=== PATIENT | female | born 1975 | race Two or more races ===

== ENCOUNTER 2017-11-03 18:20 | Inpatient (IN) | payer MEDICAID ==
--- NOTE | 2017-11-03 18:32 | ED Physician Chart ---
ED Chief Complaint/HPI - Patient Information Date Seen:: 11/03/17 Time Seen:: 18:15 Chief Complaint:: Chest Pain History of Present Illness:: onset x one year of intermittent, exertional, pressure midsternal chest pain with dyspnea and palpitations; worse x 3 days; pt denies trauma, H/As, S/T, neck pain, Abd. Pain, A/N/V/D/C, fever, chills, or urinary s/s Allergies:: Allergies Allergy/AdvReac Type Severity Reaction Status Date / Time No Known Allergies Allergy Verified 11/03/17 18:24 Historian:: Patient Review:: Nurse's Note Reviewed <Santo Santa - Last Filed: 11/03/17 18:37> - Patient Information Allergies:: Allergies Allergy/AdvReac Type Severity Reaction Status Date / Time No Known Allergies Allergy Verified 11/03/17 18:24 Vitals:: Vital Signs - 8 hr 11/03/17 11/03/17 11/03/17 18:25 18:47 19:35 Temp 98.4 F HR 78 71 90 RR 20 16 BP 160/97 154/85 156/93 O2 Sat % 98 97 11/03/17 19:50 Temp 98.0 F HR 77 RR 18 BP 156/93 O2 Sat % 97 <Reina Duarte - Last Filed: 11/03/17 22:07> ED Review of Systems - Review of Systems General/Constitutional: No fever, No chills, No weight loss, No weakness, No diaphoresis, No edema, No loss of appetite Skin: No skin lesions, No rash, No bruising Head: No headache, No light-headedness Eyes: No loss of vision, No pain, No diplopia ENT: No earache, No nasal drainage, No sore throat, No tinnitus Neck: No neck pain, No swelling, No thyromegaly, No stiffness, No mass noted Cardio Vascular: Chest pain, Palpitations, No PND, No orthopnea, No edema Pulmonary: SOB, No cough, No sputum, No wheezing GI: No nausea, No vomiting, No diarrhea, No pain, No melena, No hematochezia, No constipation, No hematemesis G/U: No dysuria, No frequency, No hematuria, No nacturia [employer]: No vaginal discharge, No abnormal vaginal bleed, No contraction Musculoskeletal: No bone or joint pain, No back pain, No muscle pain Endocrine: No polyuria, No polydipsia Psychiatric: No prior psych history, No depression, No anxiety, No suicidal ideation, No homicidal ideation, No auditory hallucination, No visual hallucination Hematopoietic: No bruising, No lymphadenopathy Allergic/Immuno: No urticaria, No angioedema Neurological: No syncope, No focal symptoms, No weakness, No paresthesia, No headache, No seizure, No dizziness, No confusion, No vertigo <Santo Santa - Last Filed: 11/03/17 18:37> ED Past Medical History - Past Medical History Obtainable: Yes Past Medical History: HTN, DM, CAD, Dyslipidemia Family History: Diabetes Melitus, HTN Social History: Non Smoker, No Alcohol, No Drug Use, Single Surgical History: None Psychiatricy History: None Medication: Reviewed <Santo Santa Last Filed: 11/03/17 18:37> Family Medical History - Family Member Mother History Unknown: Yes <Santo Santa Marv Filed: 11/03/17 18:37> ED Physical Exam - Physical Examination General/Constitutional: Awake, Well-developed, well-nourished, Alert, No distress, GCS 15, Non-toxic appearing, Ambulatory Head: Atraumatic Eyes: Lids, conjuctiva normal, PERRL, EOMI Skin: Nl inspection, No rash, No skin lesions, No ecchymosis, Well hydrated, No lymphadenopathy ENMT: External ears, nose nl, TM canals nl, Nasal exam nl, Lips, teeth, gums nl , Oropharynx nl, Tonsils nl Neck: Nontender, Full ROM w/o pain, No JVD, No nuchal rigidity, No bruit, No mass, No stridor Respiratory: Nl effort/Exclusion, Clear to Auscultation, No Wheeze/Rhonchi/Rales Cardio Vascular: RRR, No murmur, gallop, rubs, NL S1 S2, Carotid/Femoral/Distal pulses equal bilaterally GI: No tenderness/rebounding/guarding, No organomegaly, No hernia, Normal BS's, Nondistended, No mass/bruits, No McBurney tenderness : No CVA tenderness Extremities: No tenderness or effusion, Full ROM, normal strength in all extremities, No edema, Normal digits & nails Neuro/Psych: Alert/oriented, DTR's symmetric, Normal sensory exam, Normal motor strength, Judgement/insight normal, Mood normal, Normal gait, No focal deficits Misc: Normal back, No paraspinal tenderness <Santo Santa - Last Filed: 11/03/17 18:37> ED Labs/Radiology/EKG Results - EKG Interpretations EKG Time:: 18:22 Rate & Rhythm: 75; NSR Comments:: old ASMI; non-specific st-t changes <Santo Santa - Last Filed: 11/03/17 18:37> - Lab Results Results: Laboratory Tests 11/03/17 11/03/17 11/03/17 18:25 18:25 18:25 WBC 7.0 RBC 4.80 Hgb 12.6 Hct 38.2 L MCV 79.5 L MCH 26.2 L MCHC Differential 33.0 RDW 12.3 Plt Count 239 MPV 8.4 Neutrophils % 51.5 Lymphocytes % 39.8 Monocytes % 5.2 Eosinophils % 2.2 Basophils % 1.3 PT 9.4 L INR 0.90 D-Dimer 113 Sodium 136 Potassium 3.6 Chloride 104 Carbon Dioxide 24.9 Anion Gap 10.7 BUN 11 Creatinine 0.6 Est GFR ( Amer) > 60.0 Est GFR (Non-Af Amer) > 60.0 BUN/Creatinine Ratio 18.3 Glucose 115 H Calcium 8.9 Total Bilirubin 0.3 AST 19 ALT 22 Alkaline Phosphatase 74 Creatine Kinase 106 Troponin I B-Natriuretic Peptide Total Protein 7.3 Albumin 4.1 Globulin 3.2 Albumin/Globulin Ratio 1.3 Triglycerides 135 Cholesterol 191 LDL Cholesterol Direct 126 HDL Cholesterol 48 Serum , Qual Urine Source Urine Color Urine Clarity Urine pH Ur Specific [place] Urine Protein Urine Glucose (UA) Urine Ketones Urine Blood Urine Nitrate Urine Bilirubin Urine Urobilinogen Ur Leukocyte Esterase Urine RBC Urine WBC Ur Epithelial Cells Urine Bacteria 11/03/17 11/03/17 11/03/17 18:25 18:25 18:25 WBC RBC Hgb Hct MCV MCH MCHC Differential RDW Plt Count MPV Neutrophils % Lymphocytes % Monocytes % Eosinophils % Basophils % PT INR D-Dimer Sodium Potassium Chloride Carbon Dioxide Anion Gap BUN Creatinine Est GFR ( Amer) Est GFR (Non-Af Amer) BUN/Creatinine Ratio Glucose Calcium Total Bilirubin AST ALT Alkaline Phosphatase Creatine Kinase Troponin I < 0.01 L B-Natriuretic Peptide 13.6 Total Protein Albumin Globulin Albumin/Globulin Ratio Triglycerides Cholesterol LDL Cholesterol Direct HDL Cholesterol Serum , Qual NEGATIVE Urine Source Urine Color Urine Clarity Urine pH Ur Specific [place] Urine Protein Urine Glucose (UA) Urine Ketones Urine Blood Urine Nitrate Urine Bilirubin Urine Urobilinogen Ur Leukocyte Esterase Urine RBC Urine WBC Ur Epithelial Cells Urine Bacteria 11/03/17 20:00 WBC RBC Hgb Hct MCV MCH MCHC Differential RDW Plt Count MPV Neutrophils % Lymphocytes % Monocytes % Eosinophils % Basophils % PT INR D-Dimer Sodium Potassium Chloride Carbon Dioxide Anion Gap BUN Creatinine Est GFR ( Amer) Est GFR (Non-Af Amer) BUN/Creatinine Ratio Glucose Calcium Total Bilirubin AST ALT Alkaline Phosphatase Creatine Kinase Troponin I B-Natriuretic Peptide Total Protein Albumin Globulin Albumin/Globulin Ratio Triglycerides Cholesterol LDL Cholesterol Direct HDL Cholesterol Serum , Qual Urine Source [place] Urine Color YELLOW Urine Clarity CLEAR Urine pH 6.5 Ur Specific [place] 1.015 Urine Protein NEGATIVE Urine Glucose (UA) NEGATIVE Urine Ketones NEGATIVE Urine Blood NEGATIVE Urine Nitrate POSITIVE H Urine Bilirubin NEGATIVE Urine Urobilinogen 0.2 Ur Leukocyte Esterase NEGATIVE Urine RBC 0-2 Urine WBC 0-2 Ur Epithelial Cells FEW Urine Bacteria FEW <Reina Duarte - Last Filed: 11/03/17 22:07> ED Septic Shock - . Is Septic Shock (SBP<90, OR Lactate>4 mmol\L) present?: No <Santo Santa - Last Filed: 11/03/17 18:37> - <6hrs of presentation: Vital Signs: Vital Signs - 8 hr 11/03/17 11/03/17 11/03/17 18:25 18:47 19:35 Temp 98.4 F HR 78 71 90 RR 20 16 BP 160/97 154/85 156/93 O2 Sat % 98 97 11/03/17 19:50 Temp 98.0 F HR 77 RR 18 BP 156/93 O2 Sat % 97 <Reina Duarte - Last Filed: 11/03/17 22:07> ED Reassessment (Disposition) - Diagnosis Diagnosis:: Chest Pain; Dyspnea; Angina Pectoris <Santo Santa - Last Filed: 11/03/17 18:37> - Reassessment Reassessment Condition:: Improved - Patient Disposition Discharge/Transfer:: Acute Care w/in this hosp Accepting Physician:: lissa Time Called:: 2049 <Reina Duarte - Last Filed: 11/03/17 22:07>
[2017-11-03] MEDS ORDERED: Morphine Sulfate 4 mg/mL 1mL Syr IV STA (18:36)
[2017-11-03 18:41] LABS: % BASOPHILS 1.3 % (0.0-2.0); % EOSINOPHILS 2.2 % (0.0-5.0); % LYMPHOCYTES 39.8 % (20.0-50.0); % MONOCYTES 5.2 % (2.0-10.0); % NEUTROPHILS 51.5 % (40.0-80.0); BASOPHILE ABSOLUTE 0.1 Th/cumm (0-0.2); EOSINOPHILE ABSOLUTE 0.2 Th/cmm (0.1-0.4); HEMATOCRIT 38.2 % (41.0-60); HEMOGLOBIN 12.6 gm/dL (12-16); LYMPHOCYTE ABSOLUTE 2.8 Th/cmm (1.5-3.0); MEAN CELL VOLUME 79.5 fl (81-100); MEAN CORPUSCULAR HEMOGLOBIN 26.2 pg (27.0-31.0); MEAN PLATELET VOLUME 8.4 fl; MONOCYTE ABSOLUTE 0.4 Th/cmm (0.3-1.0); NEUTROPHILE ABSOLUTE 3.5 Th/cmm (1.8-8.0); PLATELET COUNT 239 Th/cmm (150-400); RED CELL DISTRIBUTION WIDTH 12.3 % (11.5-20.0)
[2017-11-03 18:51] LABS: INR 0.9 (0.5-1.4); PROTHROMBIN TIME (TEST) 9.4 SECONDS (9.5-11.5)
[2017-11-03 18:58] LABS: ALB/GLOB RATIO 1.3 (1.0-1.8); ALBUMIN 4.1 gm/dL (3.7-5.3); ALKALINE PHOSPHATASE 74 U/L (34-104); ANION GAP 10.7 (7.0-16.0); BILIRUBIN,TOTAL 0.3 mg/dL (0.3-1.0); BUN - UREA NITROGEN 11 mg/dL (7-25); CALCIUM SERUM 8.9 mg/dL (8.6-10.3); CARBON DIOXIDE 24.9 mEq/L (21.0-31.0); CHLORIDE 104 mEq/L (98-107); CHOLESTEROL 191 mg/dL (<200); CREATININE - SERUM 0.6 mg/dL (0.6-1.2); CREATININE KINASE 106 U/L (30-223); GFR AFRICAN-AMERICAN > 60.0 ml/min (>90); GFR NON AFRICAN-AMERICAN > 60.0 ml/min; GLUCOSE 115 mg/dL (70-105); HDL -HIGH DENSITY LIPOPROTEIN 48 mg/dL (23-92); POTASSIUM SERUM 3.6 mEq/L (3.5-5.1); SGOT 19 U/L (13-39); SGPT/ALT 22 U/L (7-52); SODIUM SERUM 136 mEq/L (136-145); TOTAL PROTEIN,SERUM 7.3 gm/dL (6.0-8.3); TRIGLYCERIDES 135 mg/dL (<150)
[2017-11-03 19:27] LABS: DDIMER QUANT 113 ng/mL (100-400)
[2017-11-03] MEDS ORDERED: NITROGLYCERIN OINT 2% 1 INCH PACKET TP STA (19:33)
[2017-11-03] MEDS ORDERED: NITROGLYCERIN OINT 2% 1 INCH PACKET TP ONE (19:34)
[2017-11-03 20:09] LABS: URINE MICROSCOPIC INDICATED? YES; URINE SOURCE MIDSTREAM
[2017-11-03 20:11] LABS: URINE BILIRUBIN NEGATIVE (NEGATIVE); URINE BLOOD NEGATIVE (NEGATIVE); URINE GLUCOSE (UA) NEGATIVE (NEGATIVE); URINE KETONE NEGATIVE (NEGATIVE); URINE LEUKOCYTE ESTERASE NEGATIVE (NEGATIVE); URINE NITRATE POSITIVE (NEGATIVE); URINE PH 6.5 (4.6 - 8.0); URINE PROTEIN NEGATIVE (NEGATIVE); URINE UROBILINOGEN 0.2 E.U./dL (0.2 - 1.0)
[2017-11-03 20:31] LABS: URINE CLARITY CLEAR (CLEAR); URINE COLOR YELLOW
[2017-11-03] MEDS ORDERED: Pantoprazole 40 mg EC Tab PO STA (21:10)
[2017-11-03] MEDS ORDERED: Pantoprazole 40 mg EC Tab PO ONE (21:11)
[2017-11-03 21:18] LABS: URINE BACTERIA FEW /hpf (NONE SEEN); URINE EPITHELIAL CELLS FEW /lpf (FEW); URINE RBC 0-2 /hpf (0-5); URINE WBC 0-2 /hpf (0-5)
[2017-11-03] MEDS ORDERED: Acetaminophen 500 MG TAB PO PRN (23:56)
[2017-11-04] MEDS ORDERED: NITROGLYCERIN OINT 2% 1 INCH PACKET TP SCH
[2017-11-04 04:21] VITALS: BP 143/83
--- NOTE | 2017-11-04 08:11 | Diagnostic Imaging Report ---
Portable chest x-ray Time: 1936 History: Shortness of breath Allowing for portable technique the heart size is normal. No focal pulmonary parenchymal processes. No hilar or mediastinal abnormalities. Impression: No acute abnormalities.
[2017-11-04] MEDS ORDERED: Pantoprazole 40 mg EC Tab PO SCH (09:00)
--- NOTE | 2017-11-04 09:35 | History & Physical ---
ADMIT DATE: 11/04/2017 PATIENT'S IDENTIFICATION: A 42-year-old female. 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 The patient was sent to Emergency Room because of elevated blood pressure and the patient had some chest pain. The patient was seen by Emergency Room MD and subsequently admitted to the hospital in the view of abnormal EKG and elevated blood pressure. According to the Emergency Room MD and the RN, her blood pressure got better and her pain was resolved after nitroglycerin pill. PAST MEDICAL HISTORY: Hypertension and questionable diabetes. MEDICATIONS AT HOME: Unknown. ALLERGIES: None. SOCIAL HISTORY: The patient works in the [employer]. No history of smoking cigarette, alcohol, or drug use. FAMILY MEDICAL HISTORY: Remarkable for diabetes and hypertension. REVIEW OF SYSTEMS: The patient is currently chest pain free. Denies any headache, blurred vision, double vision, dysphagia, odynophagia, runny nose, stuffy nose, fever, chills, cough, abdominal pain, nausea, vomiting, diarrhea, dysuria, hematuria, hematochezia, melena. No history of any seizure or syncopal episode. PHYSICAL EXAMINATION: GENERAL: The patient is alert, awake, oriented, lying in the bed without any acute distress. VITAL SIGNS: Temperature 98.6, pulse 65, respiratory 18, blood pressure 145/80. HEENT: Normocephalic, atraumatic. Extraocular muscles are intact. Tongue was pink and coated. Poor dentition noted. No oral lesion, no ulcer. No sinus tenderness. External recurrent movements are well visualized. NECK: Supple, no JVD, no hepatojugular reflex. No lymphadenopathy, thyromegaly, or carotid bruit. HEART: Both heart sounds are regular. No S3, no S4, no murmur. CHEST AND LUNGS: Equal in expansion, no wheezing, no crackles. ABDOMEN: Soft. No guarding, no rigidity. Liver and spleen palpable. No palpable mass. EXTREMITIES: No edema, no cyanosis, no clubbing. Pulses are +2, no calf tenderness noted. NEUROLOGIC: Alert, awake, following commands, nonfocal. AVAILABLE DIAGNOSTIC DATA: Performed in the Emergency Room has been reviewed. CLINICAL IMPRESSION: 1. Hypertension by history. 2. Atypical chest pain. 3. Obesity. 4. Possible gastroesophageal reflux disease. PLAN: 1. Admit this patient to telemetry unit, provide oxygen. 2. Aspirin. 3. Protonix. 4. Beta-meagan. 5. Cardiology consult. 6. Obtain three sets of cardiac enzymes. 7. General nursing care. 8. Cardiac monitoring. 9. Follow Cardiology recommendation. 10. Since the patient's symptoms has resolved, the patient can be discharged home with p.o. 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 [facility]# [id number]
--- NOTE | 2017-11-05 08:11 | Consultation ---
DATE OF CONSULTATION: 11/04/[address] Riddle. HISTORY OF PRESENT ILLNESS: This is a 42-year-old obese female patient who has menorrhagia. The patient apparently recently found to have high blood pressure. Following this, the patient came to the Emergency Room and the patient is admitted. The patient does not complain of chest pain. No history of PND or orthopnea at the present time. PAST MEDICAL HISTORY: Hypertension, obesity, questionable diabetes, and anxiety. FAMILY HISTORY: Unremarkable. SOCIAL HISTORY: No history of smoking or alcohol abuse. ALLERGIES: None. PHYSICAL EXAMINATION: VITAL SIGNS: Blood pressure 150/80, pulse 70, and respirations 20. HEAD: Normocephalic. No lumps or bumps. EYES: Pupils equal, reactive to light. Fundi show AV nicking, sclerae white, conjunctivae pink. NECK: Carotid 2+. Normal upstroke. JVD flat. Thyroid not palpable. Lymph nodes not palpable. CHEST: Shows increased AP diameter. No kyphosis, scoliosis. LUNGS: Bilateral bronchovesicular breath sounds. HEART: PMI fifth intercostal space with lateral to midclavicular line. S1, S2. No S3, S4, soft systolic murmur. ABDOMEN: Soft. Liver, spleen not palpable. No organomegaly. Bowel sounds active. NEUROLOGIC: Unremarkable. EXTREMITIES: Peripheral pulses 2+. No pedal edema. CLINICAL IMPRESSION: Atypical chest pain, hypertension, obesity, gastroesophageal reflux disease, and possible diabetes. PLAN: We will get EKG, troponin level, echocardiogram. [facility]# [id number]
== END 2017-11-04 17:05 | disposition home or self-care (01) | DRG 198 ==
LOC: ER 18:20 → TELE 20:50
PROVIDERS: ADMIT Internal Medicine; ATTEND Internal Medicine
DX: I25.119 Atherosclerotic heart disease of native coronary artery with unspecified angina pectoris (principal); E11.9 Type 2 diabetes mellitus without complications; R07.89 Other chest pain; F41.9 Anxiety disorder, unspecified; N92.0 Excessive and frequent menstruation with regular cycle; E78.5 Hyperlipidemia, unspecified; E66.9 Obesity, unspecified; I10 Essential (primary) hypertension; K21.9 Gastro-esophageal reflux disease without esophagitis; Z68.31 Body mass index [BMI] 31.0-31.9, adult; Z83.3 Family history of diabetes mellitus; Z82.49 Family history of ischemic heart disease and other diseases of the circulatory system
CPT/HCPCS: 36415-UA; 71045-TC; 80053-TC; 80061-TC; 81001-TC; 82550-TC; 83880-TC; 84484-TC; 84703-TC; 85025-TC; 85379-TC; 85610-TC; 87086-90; 93005; 94760; 96374; J1885; Z7610